=== PATIENT | female | born 1975 | race Hispanic/Latino ===

== ENCOUNTER 2020-08-13 09:57 | Outpatient (NON) | payer BC, SELFPAY ==
[2020-08-14 18:20] LABS: SARS-CoV-2 RNA PCR Negative
== END 2020-08-13 09:58 ==
PROVIDERS: PCP Family Medicine; Visit Provider Physician Assistant Medical
DX: Z20.828 Contact with and (suspected) exposure to other viral communicable diseases (principal); J02.9 Acute pharyngitis, unspecified; R52 Pain, unspecified
CPT/HCPCS: 87635; C9803; U0003

== ENCOUNTER 2020-10-17 07:40 | Outpatient (CLI) | payer BC, SELFPAY ==
--- NOTE | ~2020-10-17 | US_ITS ---
US abdomen limited INDICATION: Increased liver function tests PROCEDURE: Realtime right upper abdominal ultrasound. COMPARISON: No prior studies for comparison. FINDINGS: The pancreas is normal without focal mass or pancreatic ductal dilation. Increased liver e chotexture, consistent with fatty infiltration. There is normal directional flow in the portal vein. The gallbladder is normal without stones, gallbladder wall thickening or pericholecystic fluid. Comm on bile duct measures 4 mm. No sonographic Aguilar's sign. IMPRESSION: 1: Fatty infiltration of the liver. Reviewed, dictated and finalized at location A. LANCE ARTIST
== END 2020-10-17 07:41 | disposition home or self-care (01) ==
PROVIDERS: PCP Physician Assistant; Visit Provider Physician Assistant
DX: R74.8 Abnormal levels of other serum enzymes (principal); K76.0 Fatty (change of) liver, not elsewhere classified
CPT/HCPCS: 76705

== ENCOUNTER 2021-01-07 09:50 | Outpatient (CLI) | payer BC, SELFPAY ==
--- NOTE | ~2021-01-07 | MM_ITS ---
EXAMINATION: MM screening [facility] BI w vanessa HISTORY: Screening mammogram TECHNIQUE: Craniocaudal and mediolateral oblique 3-D tomosynthesis images were obtained and synthetic 2-D images were generated. CAD analysis was submitted and interpreted. COMPARISON: 08/21/2019, 04/26/2018, 09/10/2015 BREAST PARENCHYMAL COMPOSITION: There are scattered areas of fibroglandular density. FINDINGS: Stable bilateral breast masses are considered benign given the lack of interval change. The re is no evidence of suspicious mass, calcification, or architectural distortion to suggest malignanc y in either breast. There has been no suspicious interval change. IMPRESSION: 1. No mammographic evidence of malignancy. 2. Recommend routine screening mammography in one year. BI-RADS Category 2: Benign finding(s). Reviewed, dictated and finalized at location A.
== END 2021-01-07 09:51 | disposition home or self-care (01) ==
LOC: ANHIMG 09:52
PROVIDERS: PCP Family Medicine; Visit Provider Physician Assistant
DX: Z12.31 Encounter for screening mammogram for malignant neoplasm of breast (principal)
CPT/HCPCS: 77063; 77067

== ENCOUNTER 2021-02-18 18:20 | Outpatient (CLI) | payer BC, SELFPAY ==
--- NOTE | ~2021-02-18 | XR_ITS ---
EXAMINATION: XR lumbar spine min 4V EXAM DATE: 02/18/2021 18:50 INDICATION: M54.5 - Low back pain. TECHNIQUE: Lumber spine frontal, lateral, bilateral oblique projections. Coned down frontal and lat eral L5-S1 lumbar projections for interpretation. Comparison is made to prior examination from 017. FINDINGS: There is mild lumbar levoscoliosis. Probably congenitally narrow L5-S1 disc height with aliyah e superimposed loss of height as well. There is mild to moderate L4-5 and L5-S1 facet arthropathy. Th e vertebral bodies are aligned in the AP dimension. Vertebral body heights are maintained. Paraspinal soft tissue is unremarkable. IMPRESSION: Mild to moderate L5-S1 disc disease and lower lumbar facet arthropathy. Reviewed, dictated and finalized at location A. IMPRESSION: Mild to moderate L5-S1 disc disease and lower lumbar facet arthropa thy.
--- NOTE | ~2021-02-18 | XR_ITS ---
EXAMINATION: XR thoracic spine 3V EXAM DATE: 02/18/2021 18:50 INDICATION: Upper thoracic pain. TECHNIQUE: Frontal and lateral projections of the thoracic spine as well as lateral swimmers projecti on of the upper thoracic spine for interpretation. There is no prior study for comparison. FINDINGS: There is mild mid thoracic disc disease. The vertebral body and disc heights are otherwise well maintained. The vertebral bodies are aligned in the AP dimension. There are no acute fractures identified. Paraspinal soft tissue is unremarkable. IMPRESSION: Mild mid thoracic disc disease. Reviewed, dictated and finalized at location A.
== END 2021-02-18 18:21 | disposition home or self-care (01) ==
LOC: ANHIMG 18:24
PROVIDERS: PCP Family Medicine; Visit Provider Family Medicine
DX: M54.30 Sciatica, unspecified side (principal); M54.5 Low back pain; M51.9 Unspecified thoracic, thoracolumbar and lumbosacral intervertebral disc disorder
CPT/HCPCS: 72072; 72110

== ENCOUNTER 2022-01-22 14:30 | Outpatient (RCR) | payer BC, SELFPAY ==
[2021-12-17 14:49] VITALS: BMI 33.6
[2021-12-17 14:57] VITALS: BMI 33.6
[2022-01-22 14:43] VITALS: BMI 33.0
[2022-01-22 14:46] VITALS: BMI 33.0
== END 2022-03-16 10:30 | disposition home or self-care (01) ==
LOC: ANHDMC 14:30
PROVIDERS: PCP Family Medicine; Visit Provider Physician Assistant
DX: E78.5 Hyperlipidemia, unspecified (principal); E66.9 Obesity, unspecified; Z71.3 Dietary counseling and surveillance
CPT/HCPCS: 97802; 97803

== ENCOUNTER 2022-02-09 | Day surgery (SDC) | payer BC, SELFPAY ==
[2021-11-21 15:06] VITALS: BMI 28.2
[2022-01-26 13:44] VITALS: BMI 28.2
[2022-02-09 07:44] VITALS: BP 131/81; PULSE 93; RESP 20; TEMP 35.7; O2SAT 99
[2022-02-09] MEDS: LACTATED RINGERS 1,000 ML 150 ML IV CONT (07:56)
--- NOTE | 2022-02-09 07:59 | WPDANESEPPF ---
Anes - Initial Pre Proc Eval Procedure: Operation Date: 02/09/22 08:45 Proposed Procedures p Screening Colonoscopy - Petey Roger MD Date/Time: 02/09/22 07:59 Surgeon: Petey Roger MD Pre Op Diagnosis: neoplasm screening Patient Data Age: 46 Gender: F Height: 1.65 m Weight: 78.3 kg Last Vital Signs Temp 96.2 F L 02/09/22 07:44 Pulse 93 02/09/22 07:44 Resp 20 02/09/22 07:44 BP 131/81 02/09/22 07:44 Pulse Ox 99 02/09/22 07:44 Allergies Allergy/AdvReac Type Severity Reaction Status Date / Time amoxicillin Allergy Unknown Skin Verified 02/09/22 07:43 Reaction atomoxetine Allergy Unknown Skin Verified 02/09/22 07:43 Reaction Home Medications Medication Instructions Recorded Confirmed Type lamotrigine 100 mg tablet 100 mg PO BID 06/26/20 02/06/22 History ropinirole 1 mg tablet 1 mg PO DAILY PRN tablet 10/07/20 02/06/22 History aripiprazole 5 mg tablet 5 mg PO DAILY 02/18/21 02/06/22 History cyclobenzaprine 10 mg tablet 10 mg PO TID PRN #30 tablet 02/18/21 02/06/22 Rx dexmethylphenidate 10 mg tablet 10 mg PO DAILY 10/08/21 02/06/22 History modafinil 100 mg tablet 200 mg PO QAM tablet 10/08/21 02/06/22 History varenicline 1 mg tablet 1 mg PO BID 10/08/21 02/06/22 History cholecalciferol (vitamin D3) 125 mcg PO DAILY 11/21/21 02/06/22 History [Vitamin D3] ferrous sulfate 325 mg PO DAILY 11/21/21 02/06/22 History atorvastatin 10 mg tablet 10 mg PO DAILY #90 tablet 02/06/22 02/06/22 Rx Patient hx anesthesia problems: none Family hx anesthesia problems: none Results Review: All pre-operative results and documents have been reviewed as part of the pre-operative evaluation. [facility] Past Medical History Medical History (Updated 02/06/22 @ 15:53 by Russ Hennessy DO) Bipolar disorder GERD (gastroesophageal reflux disease) Hyperlipidemia NAFLD (nonalcoholic fatty liver disease) CECY (obstructive sleep apnea) CPAP Family History Family History Other Family history of attention deficit hyperactivity disorder (ADHD) Family history of mental disorder Social History Social History Years smoked: 23 Alcohol intake: current Drinks per week: 2 Alcohol use details: Every couple of months Living arrangements: with family Spiritual care concerns: No Anes - Eval Final PreProcedure Day of Procedure 02/09/22 07:59 Patient weight: overweight Heart: regular rate and rhythm Lungs: clear to auscultation Airway: Mallampati scale class II Neurological: alert and oriented Last oral intake: >/= 8 hours ASA classification: III Emergent: no Anesthetic plan: proceed Anesthesia type and monitoring: general GIVS and standard monitoring Results Review: All pre-operative results and documents have been reviewed as part of the pre-operative evaluation. Informed Consent: The patient's anesthetic plan and its attendant risks and benefits were discussed with the patient/family/POA. Questions were solicited and answers provided to the satisfaction of the patient/family/POA.
--- NOTE | 2022-02-09 08:27 | SUR.PREOP ---
Patient unable to provide urine for bedside stat HCG test. Dr. Gasca notified, verbal order okay to cancel urine test for this procedure.
--- NOTE | 2022-02-09 08:28 | PM.HPGS ---
History of Present Illness History of Present Illness Consent: Risks, benefits, and alternatives have been discussed and questions answered. Patient agrees to proceed with procedure. Chief complaint: neoplasm screening Narrative: Corazon Broussard is a 46 year old female here for first screening colonoscopy Review of Systems Constitutional: Constitutional: Denies headache(s) and Denies weakness Eyes: Eyes: Denies blurry vision ENT: Reports Normal hearing present, Denies headache(s) and Denies neck pain Cardiovascular: Cardiovascular: Denies chest pain and Denies dyspnea Respiratory: Respiratory: Denies dyspnea Gastrointestinal: Gastrointestinal: Reports no additional gastrointestinal complaints Genitourinary: Genitourinary: Denies dysuria Musculoskeletal: Musculoskeletal: Denies neck pain Integumentary/Breasts: Skin/Breast: Denies dry skin Neurologic: Reports Normal hearing present, Denies headache(s) and Denies weakness Psychiatric: Psychiatric: Denies anxiety Endocrine: Endocrine: Denies change in body appearance Hematologic/Lymphatic: Hematologic/Lymphatic: Denies easy bleeding Allergic/Immunologic: Allergic/Immunologic: Denies urticaria [facility] Past Medical History Medical History (Updated 02/09/22 @ 08:28 by Petey Roger MD) Bipolar disorder Colon cancer screening GERD (gastroesophageal reflux disease) Hyperlipidemia NAFLD (nonalcoholic fatty liver disease) CECY (obstructive sleep apnea) CPAP Family History Family History Other Family history of attention deficit hyperactivity disorder (ADHD) Family history of mental disorder Social History Social History Years smoked: 23 Alcohol intake: current Drinks per week: 2 Alcohol use details: Every couple of months Living arrangements: with family Spiritual care concerns: No Meds Home Medications and Allergies Home Medications Medication Instructions Recorded Confirmed Type lamotrigine 100 mg tablet 100 mg PO BID 06/26/20 02/06/22 History ropinirole 1 mg tablet 1 mg PO DAILY PRN tablet 10/07/20 02/06/22 History aripiprazole 5 mg tablet 5 mg PO DAILY 02/18/21 02/06/22 History cyclobenzaprine 10 mg tablet 10 mg PO TID PRN #30 tablet 02/18/21 02/06/22 Rx dexmethylphenidate 10 mg tablet 10 mg PO DAILY 10/08/21 02/06/22 History modafinil 100 mg tablet 200 mg PO QAM tablet 10/08/21 02/06/22 History varenicline 1 mg tablet 1 mg PO BID 10/08/21 02/06/22 History cholecalciferol (vitamin D3) 125 mcg PO DAILY 11/21/21 02/06/22 History [Vitamin D3] ferrous sulfate 325 mg PO DAILY 11/21/21 02/06/22 History atorvastatin 10 mg tablet 10 mg PO DAILY #90 tablet 02/06/22 02/06/22 Rx Allergies Allergy/AdvReac Type Severity Reaction Status Date / Time amoxicillin Allergy Unknown Skin Verified 02/09/22 07:43 Reaction atomoxetine Allergy Unknown Skin Verified 02/09/22 07:43 Reaction Vital Signs Vital Signs - 24 hr 02/09/22 07:44 Temperature 96.2 F L Pulse Rate 93 Respiratory Rate 20 Blood Pressure 131/81 Pulse Oximetry 99 Exam Const: General: comfortable and no acute distress HENMT: General nose exam: Normal nares present Eyes: General: appearance normal, both eyes and all related structures Neck: Neck: no JVD Resp: Auscultation: clear to auscultation bilaterally Cardio: Rate: regular rate Rhythm: regular rhythm GI: Inspection: non-distended GI Palp: Yes Soft to palpation Skin: General skin exam: normal color Neuro: General: gait normal Speech: normal speech Extrem: General: normal to inspection Psych: Mental Status: mental status grossly normal Assessment and Plan Assessment and plan (1) Colon cancer screening: Code(s): Z12.11 - Encounter for screening for malignant neoplasm of colon Status: Acute Assessment and Plan: colonoscopy
[2022-02-09 08:45] VITALS: BP 120/55; PULSE 75; RESP 17; O2SAT 99
[2022-02-09 08:55] VITALS: BP 103/64; PULSE 66; RESP 24; O2SAT 99
[2022-02-09 09:05] VITALS: BP 107/73; PULSE 61; RESP 25; O2SAT 100
== END 2022-02-09 09:19 | disposition home or self-care (01) ==
PROVIDERS: PCP Family Medicine; Visit Provider Internal Medicine Gastroenterology
PROC: 0DJD8ZZ Inspection of Lower Intestinal Tract, Via Natural or Artificial Opening Endoscopic (ICD-10-PCS; CPT 45378; principal; 2022-02-09 08:45)
DX: Z12.11 Encounter for screening for malignant neoplasm of colon (principal); K63.5 Polyp of colon; K64.8 Other hemorrhoids; E78.5 Hyperlipidemia, unspecified; K21.9 Gastro-esophageal reflux disease without esophagitis; K76.0 Fatty (change of) liver, not elsewhere classified; F31.9 Bipolar disorder, unspecified; G47.33 Obstructive sleep apnea (adult) (pediatric)
CPT/HCPCS: 45385; 88305; J2704; J7120

== ENCOUNTER 2023-04-20 09:36 | Outpatient (RCR) | payer BC, SELFPAY ==
[2023-04-20 09:43] VITALS: BMI 35.2
[2023-04-20 10:31] VITALS: BMI 35.2
== END 2023-07-19 12:47 | disposition home or self-care (01) ==
LOC: ANHDMC 09:36
PROVIDERS: PCP Family Medicine; Visit Provider Family Medicine
DX: E66.9 Obesity, unspecified (principal); K76.0 Fatty (change of) liver, not elsewhere classified; Z71.3 Dietary counseling and surveillance
CPT/HCPCS: 97802

== ENCOUNTER → 2023-05-03 08:27 | Outpatient (CLI) | payer BC, SELFPAY ==
--- NOTE | ~2023-05-03 | US_ITS ---
US right upper quadrant INDICATION: Fatty liver PROCEDURE: Realtime right upper abdominal ultrasound. COMPARISON: No prior studies for comparison. FINDINGS: The pancreas is normal without focal mass or pancreatic ductal dilation. Liver echotexture is increased, consistent with fatty infiltration. Liver is enlarged. There is normal directional fl ow in the portal vein. The gallbladder is normal without stones, gallbladder wall thickening or pericholecystic fluid. Comm on bile duct measures 4 mm. No sonographic Aguilar's sign. IMPRESSION: 1: Hepatomegaly with fatty infiltration of the liver parenchyma. Reviewed, dictated and finalized at location A.
== END ==
PROVIDERS: PCP Family Medicine; Visit Provider Family Medicine
DX: K76.0 Fatty (change of) liver, not elsewhere classified (principal)
CPT/HCPCS: 76705

== ENCOUNTER 2023-05-04 07:33 | Outpatient (CLI) | payer BC, SELFPAY ==
--- NOTE | ~2023-05-04 | MM_ITS ---
EXAMINATION: MM screening jet BI w vanessa HISTORY: Screening mammogram TECHNIQUE: Craniocaudal and mediolateral oblique 3-D tomosynthesis images were obtained and synthetic 2-D images were generated. CAD analysis was submitted and interpreted. COMPARISON: 01/07/2021, 08/21/2019, 04/26/2018 bilateral screening mammogram examinations BREAST PARENCHYMAL COMPOSITION: There are scattered areas of fibroglandular density. FINDINGS: Stable bilateral breast masses. There is no evidence of suspicious mass, calcification, or architectural distortion to suggest malignancy in either breast. There has been no suspicious interva l change. IMPRESSION: 1. No mammographic evidence of malignancy. 2. Recommend routine screening mammography in one year. BI-RADS Category 2: Benign finding(s). Reviewed, dictated and finalized at location L.
== END 2023-05-04 07:34 | disposition home or self-care (01) ==
PROVIDERS: PCP Family Medicine; Visit Provider Family Medicine
DX: Z12.31 Encounter for screening mammogram for malignant neoplasm of breast (principal)
CPT/HCPCS: 77063; 77067

== ENCOUNTER → 2023-11-19 09:19 | Outpatient (CLI) | payer BC, SELFPAY ==
--- NOTE | ~2023-11-19 | US_ITS ---
Abdominal Sonogram: Real-time sonographic imaging of the abdomen was performed. Clinical History: Abdominal pain Findings: The liver appears mildly echogenic, with no evidence of mass lesion or bile duct dilatatio n. Main portal vein demonstrates normal direction of flow. The spleen is normal in size without evide nce of focal lesion. The gallbladder is well distended, and appears normal with no evidence of galls tone or wall thickening. The common bile duct measures 4 mm. The visualized pancreas, aorta, and IVC are unremarkable. The right kidney measures 11.5 cm in length and the left kidney measures 10.9 cm. There is no hydronephrosis or renal calculus. Impression: Diffuse fatty infiltration of the liver. Reviewed, dictated and finalized at location M. SUPERVISOR Impression: Diffuse fatty infiltration of the liver.
== END ==
PROVIDERS: PCP Family Medicine; Visit Provider Nurse Practitioner
DX: K76.0 Fatty (change of) liver, not elsewhere classified (principal)
CPT/HCPCS: 76700

== ENCOUNTER 2024-05-12 12:50 | Outpatient (CLI) | payer BC, SELFPAY ==
--- NOTE | ~2024-05-12 | XR_ITS ---
Right ankle Technique: AP and lateral views were obtained. Clinical History: Swelling Findings: No acute fracture or dislocation is seen. Osseous alignment is anatomic. Ankle mortise and other visualized joint spaces are preserved. Soft tissues are otherwise unremarkable. Impression: Unremarkable right ankle. Reviewed, dictated and finalized at location . Impression: Unremarkable right ankle.
--- NOTE | ~2024-05-12 | US_ITS ---
EXAMINATION: US soft tissue LE RT, US soft tissue LE LT DATE: 05/12/2024 13:26 INDICATION: Bilateral ankle joint effusions TECHNIQUE: Multiple grayscale and Doppler ultrasound images of the left and right ankles were obtaine d. COMPARISON: None FINDINGS: No joint effusions seen at either ankle. Trace amount of fluid along the peroneal tendons as they pas s along the lateral malleoli which is within normal limits. No abnormal masses or fluid collections i dentified. IMPRESSION: 1. No joint effusion or other abnormal masses or fluid collections identified in the visualized porti ons of either the left or right ankles. Reviewed, dictated and finalized at location A. IMPRESSION: 1. No joint effusion or other abnormal masses or fluid collections identified i n the visualized portions of either the left or right ankles.
--- NOTE | ~2024-05-12 | XR_ITS ---
Left ankle Technique: AP and lateral views were obtained. Clinical History: Swelling Findings: No acute fracture or dislocation is seen. Osseous alignment is anatomic. Ankle mortise and other visualized joint spaces are preserved. Plantar calcaneal spur present. Soft tissues are otherwi se unremarkable. Impression: Plantar calcaneal spur. Reviewed, dictated and finalized at location . Impression: Plantar calcaneal spur.
== END 2024-05-12 12:51 ==
LOC: GOSHIMG 12:50
PROVIDERS: PCP Family Medicine; Visit Provider Family Medicine
DX: M25.471 Effusion, right ankle (principal); M25.472 Effusion, left ankle
CPT/HCPCS: 73600; 76882

== ENCOUNTER 2025-05-07 12:37 | Outpatient (CLI) | payer BC, SELFPAY ==
--- NOTE | ~2025-05-07 | MM_ITS ---
EXAMINATION: MM screening jet BI w vanessa HISTORY: Screening TECHNIQUE: Craniocaudal and mediolateral oblique 3-D tomosynthesis images were obtained and synthetic 2-D images were generated. CAD analysis was submitted and interpreted. COMPARISON: Comparison to multiple prior studies sequentially, with oldest reviewed study dated 10/2014. BREAST PARENCHYMAL COMPOSITION: Not dense: There are scattered areas of fibroglandular density. FINDINGS: There are developing subareolar/periareolar asymmetries of the right breast. The left breas t is stable without evidence for malignancy. There is bilateral hilar lymph node enlargement which ap pears new compared with prior study. IMPRESSION: 1. Developing right breast asymmetries in the subareolar/periareolar location. Developing bilateral a xillary lymphadenopathy. 2. Additional mammographic views and possible breast ultrasound are recommended. BI-RADS Category 0: Incomplete: Needs additional imaging evaluation. Reviewed, dictated and finalized at location B. IMPRESSION: 1. Developing right breast asymmetries in the subareolar/periareolar location. Developing bilateral axillary lymphadenopathy. 2. Additional mammographic views and possible breast ultrasound are recommended . BI-RADS Category 0: Incomplete: Needs additional imaging evaluation.
--- OUTSIDE RECORDS SUMMARY | 2025-05-07 12:41 | XMS_ITS | Data Portability ---
Author Organization [facility] ([facility] Address [address] [place] [address] [address] [place] [address] Care Team Providers Care Safety Deposit Supervisor Name Role Phone KEIRY CUNHA Referring Provider [phone] Assessment No assessment recorded. Plan of Treatment Reminders Order Date Submit Date Provider Last Modified By Organization Details Last Modified Time Details Appointments None record ed. Lab None record ed. Referral None record ed. Procedures None record ed. Surgeries None record ed. Imaging None record ed. Medication Orders None record ed. Patient TargetsNo targets recorded. Patient InstructionsNo instructions recorded. Reason for Referral None Reported. Procedures Surgical History Date Name Laterality Status Provider Name and Address Organization Details Recorded Time 08/23/2017 Sleep Study completed Luis Montoya [id number] [facility] [address], [place], [address], [facility] 08/26/2017 18:31:34 Imaging Results None recorded. Procedure Notes None recorded. Medical Equipment None Reported. Vitals None Recorded Social History None recorded. Functional Status None recorded. Mental Status None recorded. Family History Nothing Reported. Medical History No medical history recorded. Gynecological HistoryNo gynecological history recorded. Obstetrics History GPAL:G 0 P 0 0 0 0 Past Encounters Encounter ID Performer Location Encounter Start Date Encounter Closed Date Diagnosis/Indication Diagnosis SNOMED-CT Code Diagnosis ICD10 Code Diagnosis Note [id number] Luis Montoya [facility] [phone] [facility] [address] [place] [address] 08/23/2017 13:34:35 08/23/2017 20:51:24 Obstructive sleep apnea of adult 8411553660 103 G47.33 Health Concerns Section Related Observation LastModified by Organization Detai ls LastModified Time None Recorded Concern Status LastModified by Organization Details LastModified Time None Recorded Advance Directives Directive None Recorded Payers Insurance Date Sequence Insurance Name Policy Number Policy Lazaro Covered Member ID Lazaro Member ID Guarantor Name 08/17/2017 1 [employer] (POS) [id number] Corazon Broussard [id number] Corazon Broussard [place] Episode No OBEpisode recorded.
--- OUTSIDE RECORDS SUMMARY | 2025-05-07 12:41 | XMS_ITS | Clinical Summary ---
Author Organization [facility] Address [address] [place] [address] Phone Care Team Providers Care Director Business Management Name Role Phone Sayda Chairez Primary Care Provider [phone] Medications Lisdexamfetamine Dimesylate (VYVANSE) 30 MG CapsuleIndications :Attention Deficit Hyperactivity Disorder Take 30 mg by mouth daily. Active Dexmethylphenidate HCl 5 MG Tablet Take 5 mg by mouth daily after lunch. Active lamoTRIgine (LAMICTAL) 100 MG TabletIndications: Bipolar Mood Disorder Take 100 mg by mouth 2 times daily. Active atenolol (TENORMIN) 25 MG TabletIndications: panic Take 25 mg by mouth daily as needed. Active FLUoxetine (PROZAC) 20 MG Capsule Take 20 mg by mouth daily. Active modafinil (PROVIGIL) 100 MG TabletIndications: fatigue Take 100 mg by mouth daily. Active pramipexole (MIRAPEX) 0.25 MG Tablet Take 0.25 mg by mouth 3 times daily. Active IRON PO Take by mouth. Active Cholecalciferol (VITAMIN D PO) Take by mouth. 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 Anxiety 05/20/2018 Family History Relation Name Status Comments Brother Josué Alive Father Charbel Alive Mother Renea Alive Social History Tobacco Use Types Packs/Day Years Used Date Smoking Tobacco: Former Smokeless Tobacco: Never Alcohol Use Standard Drinks/Week Comments No 0 (1 standard drink = 0.6 oz pure alcohol) Excessive prior use - self medicating/now abstains Sexually Active Control Partners Comments Never Male Comments Unknown Sex and Gender Information Value Date Recorded Sex Assigned at Not on file Legal Sex Female 10:55 AM CDT Gender Identity Not on file Sexual Orientation Not on file Plan of Treatment Health Maintenance Due Date Last Done Comments Hepatitis C Virus (HCV) Screening 1975 Hepatitis B Immunization (1 of 3 - 19+ 3-dose series) 1994 Pap Smear 02/28/1996 Cervical Cancer Screening (CCS) 2005 HPV/Cotest 2005 Cologuard 02/28/2020 Colonoscopy 02/28/2020 Colorectal Cancer Screening 02/28/2020 Immunochemical Fecal Occult Blood 02/28/2020 SARS-COV-2 Immunization (3 - 2023- season) 2024 12/10/2020, 11/19/2020 Pneumococcal Immunization (5 0+ years) (1 of 1 - PCV) 2025 Zoster Immunization (1 of 2) 2025 Influenza Immunization (#1) 2025 Respiratory Syncytial Virus (RSV) Immunization (Adult) (1 - 1-dose 75+ series) 2050 DTaP/Tdap/Td Immunization Discontinued 04/20/2018 TdaP Immunization Completed 04/20/2018 Human Papillomavirus (HPV) Immunization Aged Out No longer eligible based on patient's age to complete this topic Meningococcal Immunization (ACWY) Aged Out No longer eligible based on patient's age to complete this topic Rotavirus Immunization Aged Out No lo nger eligible based on patient's age to complete this topic Goals Goal Patient Goal Type Associated Problems Recent Progress Patient-Stated? Author Patient to report a decrease in the intensity and frequency of anxious and depressive symptoms. Behavioral Health On track( 020 8:58 AM CDT) No Ericka Mendez, HARRY Note: 1. Patient to utilize three coping skills. 2. Patient to take medication and attend all scheduled appointments. 3. Patient to practice utilization of boundaries. Insurance [facility] Care Teams Director Business Management Relationship Specialty Start Date End Date Sayda Chairez, URIEL [address] [place] [address] PCP - General Family Medicine 05/05/19
== END 2025-05-07 12:38 | disposition home or self-care (01) ==
LOC: CHSIMG 12:39
PROVIDERS: PCP Family Medicine; Visit Provider Family Medicine
DX: Z12.31 Encounter for screening mammogram for malignant neoplasm of breast (principal); R92.8 Other abnormal and inconclusive findings on diagnostic imaging of breast
CPT/HCPCS: 77063; 77067

== ENCOUNTER 2025-05-17 08:49 | Outpatient (CLI) | payer BC, SELFPAY ==
--- NOTE | ~2025-05-17 | MMUS_ITS ---
EXAMINATION: MM diagnostic jet RT w vanessa, US breast RT limited INDICATION: 50-year old female; BI-RADS 0, callback to evaluate Right breast asymmetries and bilatera l prominent axillary lymph nodes. COMPARISON: 04/29/2025 TECHNIQUE: Digital breast tomosynthesis True lateral and spot compression CC and MLO views of the RIG HT breast were obtained with computer-aided detection to assist in interpretation of the study. Focus ed right breast ultrasound and Bilateral axillary ultrasound were completed. FINDINGS: There are scattered areas of fibroglandular density. The asymmetries of concern in the subareolar/periareolar location right breast effaces on spot compre ssion views compatible with superimposition of fibroglandular tissue. A circumscribed mass persists i n the outer central right breast at middle to posterior third. Ultrasound was performed for further e valuation. RIGHT BREAST ULTRASOUND FINDINGS: Targeted evaluation of the subareolar, lateral right breast and bilateral axillary regions was comple xenia. Prominent ducts containing clear fluid is seen in the subareolar location. There is a 0.6 x 0.8 x 0.5 cm cluster of microcysts at 9:00 location 5 cm from the nipple in the RIGHT breast that correla te to the mammography finding in the outer central right breast. Ultrasound evaluation of both axilla showed benign-appearing lymph nodes with predominant fatty percy which correspond to the mammographic findings. IMPRESSION: 1. Probable Benign RIGHT breast mass. Short-term follow-up recommended. 2. The right breast asymmetries of concern on the mammogram represents superimposition of fibroglandu lar tissue. No further investigation necessary. RECOMMENDATION: 6 month follow-up diagnostic RIGHT mammogram and RIGHT breast ultrasound. BI-RADS 3, PROBABLY BENIGN Reviewed, dictated and finalized at location B. IMPRESSION: 1. Probable Benign RIGHT breast mass. Short-term follow-up recommended. 2. The right breast asymmetries of concern on the mammogram represents superimp osition of fibroglandular tissue. No further investigation necessary. RECOMMENDATION: 6 month follow-up diagnostic RIGHT mammogram and RIGHT breast ultrasound. BI-RADS 3, PROBABLY BENIGN
--- OUTSIDE RECORDS SUMMARY | 2025-05-17 08:59 | XMS_ITS | Clinical Summary ---
Author Organization [facility] Address [address] [place] [address] Phone Care Team Providers Care Rapid Extractor Operator Name Role Phone Sayda Chairez Primary Care Provider [phone] Medications Lisdexamfetamine Dimesylate (VYVANSE) 30 MG CapsuleIndications [...] Patient to practice utilization of boundaries. Insurance [facility] Care Teams Rapid Extractor Operator Relationship Specialty Start Date End Date Sayda Chairez, URIEL [address] [place] [id number] PCP - General Family Medicine 05/05/19
== END 2025-05-17 08:50 | disposition home or self-care (01) ==
LOC: CHSIMG 08:52
PROVIDERS: PCP Family Medicine; Visit Provider Family Medicine
DX: N63.41 Unspecified lump in right breast, subareolar (principal); R92.8 Other abnormal and inconclusive findings on diagnostic imaging of breast
CPT/HCPCS: 76642; 77061; 77065; G0279